=== PATIENT | male | born 1955 ===

== ENCOUNTER 2023-01-05 09:56 | Outpatient (RCR) | payer MEDICARE, BC, SELFPAY | END 2023-01-05 23:59 | disposition home or self-care (01) | LOC: CR 09:56 | PROVIDERS: Visit Provider Internal Medicine Cardiovascular Disease | DX: Z95.4 Presence of other heart-valve replacement (principal); Z51.89 Encounter for other specified aftercare | CPT/HCPCS: S9472 ==

== ENCOUNTER 2023-02-05 12:40 | Outpatient (RCR) | payer MEDICARE, BC, SELFPAY ==
--- NOTE | 2023-01-08 09:45 | RT.EKG_ITS ---
APPROVED REPORT Exam: Resting ECG Reason for Exam: ?arrythmia Patient Location: O HR:78 bpm ECG Measurements Heart Rate 78 AXIS MI 241 P 77 QRSd 187 QRS -28 QT 497 T 105 QTc 567 Conclusion Sinus rhythm...normal P axis, V-rate 50- 99 Prolonged MI interval...MI >220, V-rate 50- 90 Left bundle branch block...QRSd>120, broad/notched R
== END 2023-02-05 23:59 | disposition home or self-care (01) ==
LOC: CR 12:40
PROVIDERS: Visit Provider Internal Medicine Cardiovascular Disease
DX: Z51.89 Encounter for other specified aftercare (principal); Z95.2 Presence of prosthetic heart valve
CPT/HCPCS: S9472

== ENCOUNTER 2023-02-28 13:18 | Outpatient (RCR) | payer MEDICARE, BC, SELFPAY | END 2023-03-08 23:59 | disposition home or self-care (01) | LOC: CR 13:18 | PROVIDERS: Visit Provider Internal Medicine Cardiovascular Disease | DX: Z95.5 Presence of coronary angioplasty implant and graft (principal); Z51.89 Encounter for other specified aftercare | CPT/HCPCS: S9472 ==

== ENCOUNTER 2023-04-02 10:00 | Outpatient (RCR) | payer MEDICARE, BC, SELFPAY | END 2023-04-07 23:59 | disposition home or self-care (01) | LOC: CR 10:00 | PROVIDERS: Visit Provider Internal Medicine Cardiovascular Disease | DX: Z95.2 Presence of prosthetic heart valve (principal); Z51.89 Encounter for other specified aftercare | CPT/HCPCS: S9472 ==